=== PATIENT | male | born 1930 | race Caucasian/White ===

== ENCOUNTER 2016-06-11 13:21 | Inpatient (IN) | payer OTHER ==
[~2016-06-11] VITALS: Ht 170.2 cm; Wt 62.9 kg
[~2016-06-11 13:21] MED LIST: APRESOLINE25 MG PO; ASPIR 8181 M1 PO; BENAZEPRIL HCL40 MG PO; CARVEDILOL; CARVEDILOL12.5 MG PO; CEFTIN500 MG PO; CENTRUM MULTIV1 EACH PO; CEPHALEXIN500 MG PO; COREG12.5 MG PO; Centrum Silver,Certa PO; FINASTERIDE5 MG PO; Flomax PO; INSULIN SYRG MIS 1ML; KLOR-CON 1010 MEQ PO; LANTUS 10100 UNITS/ SC; LANTUS 3 M100 UNITS/ SC; LANTUS 3 M100 UNITS1 SC; LANTUS100 UNIT/1 SQ; LASIX40 MG PO; LOTENSIN40 MG PO; NOVOLOG 10100 UNITS/ SQ; NOVOLOG100 UNIT/2 SQ; OMEGA-31000 M1 PO; PRAVACHOL10 MG PO; PRAVACHOL20 MG PO; Proscar PO; RESTASIS 01 DROP/0.4 BOTH EYES; SPIRONOLACTONE25 MG; SPIRONOLACTONE25 MG PO; TOBRAMYCIN; TYLOX1 CAPSULE PO; [UNRECOGNIZED DRUG - OTHER] BOTH EYES
[2016-06-11 14:28] LABS: EOSINOPHIL (%) 0.9 % (0-5); EOSINOPHIL COUNT 0.1 K/uL (0-0.3); HEMATOCRIT 27.9 % (38.0-50.0); IMMATURE GRANULOCYTE (%) 0.5 % (0.0-0.7); LYMPHOCYTE COUNT 0.9 K/uL (1.0-2.8); MCH 31.2 PG (29.0-34.0); MCHC 34.4 G/DL (30.0-36.0); MCV 90.6 FL (86-99); MEAN PLAT.VOLUME 9.8 uM^3 (9.0-12.4); MONOCYTE (%) 10.1 % (3-12); MONOCYTE COUNT 0.7 K/uL (0-0.8); NEUTROPHIL (%) 74.9 % (45-76); PLATELET COUNT 257 K/uL (156-360); RBC DIS.WIDTH-CV 13.7 % (11.8-14.6); RBC DIS.WIDTH-SD 44.2 % (39-53); RED BLOOD COUNT 3.08 M/uL (4.00-5.50); WHITE BLOOD COUNT 6.6 K/uL (4.1-10.2)
[2016-06-11 14:38] LABS: CHLORIDE 93 mEq/L (99-109); POTASSIUM 3.5 mEq/L (3.7-5.4); SODIUM 131 mEq/L (136-147)
[2016-06-11 14:41] LABS: ANION GAP 12 MEQ/L (2-14)
[2016-06-11 14:43] LABS: GFR ESTIMATE (CALCULATED) 51 mL/min/
[2016-06-11 14:44] LABS: UREA NITROGEN (BUN) 16 mg/dL (9-23)
[2016-06-11 14:57] LABS: GLUCOSE 728 mg/dL (70-99)
[2016-06-11] MEDS ORDERED: TYLENOL REGULA325 MG PO (16:09)
[2016-06-11] MEDS ORDERED: CENTRUM SILVER1 EAC3 PO (16:10)
[2016-06-11 17:12] LABS: ALKALINE PHOSPHATASE 75 IU/L (3-129)
[2016-06-11 17:15] LABS: DIRECT BILIRUBIN 0.3 mg/dL (0.0-0.3)
[2016-06-11 17:50] LABS: Estimated Average Glucose 352 mg/dL (70-123); HEMOGLOBIN A1c (GLYCOHEMOGLOB) 13.9 % HGB (Below 5.7)
[2016-06-11 17:52] VITALS: BP 170/85
[2016-06-11 20:59] LABS: POINT-OF-CARE METER ID UU14174225
[2016-06-11 23:59] VITALS: BP 144/71
[2016-06-12 00:47] LABS: ADD MIUA? YES; BILIRUBIN NEGATIVE; BLOOD NEGATIVE; COLOR YELLOW ((YELLOW)); GLUCOSE (STRIP) >=500; KETONES NEGATIVE; LEUKOCYTES NEGATIVE; NITRITE NEGATIVE; PROTEIN (STRIP) 100; SPECIFIC GRAVITY 1.022 (1.000-1.030); UROBILINOGEN 0.2 MG/DL (0.2-1.0)
[2016-06-12 00:57] LABS: BACTERIA NONE SEEN /HPF; EPITHELIAL CELLS RARE /HPF; MUCUS TRACE /LPF; RED BLOOD CELLS 0-5 /HPF (0-5); UCUL ADDED? NO
[2016-06-12 07:26] LABS: ANION GAP 7 MEQ/L (2-14); CHLORIDE 103 MEQ/L (99-109); POTASSIUM 3.3 MEQ/L (3.7-5.4); SAMPLE HEMOLYSIS CHECK 0; SAMPLE ICTERIC CHECK 0; SAMPLE LIPEMIA CHECK 0; UREA NITROGEN (BUN) 17 mg/dL (9-23)
[2016-06-12 07:30] LABS: GFR ESTIMATE (CALCULATED) > 59 mL/min/; GLUCOSE 47 mg/dL (70-99); SODIUM 139 MEQ/L (136-147)
[2016-06-12 08:04] VITALS: BP 165/72
[2016-06-12 09:50] LABS: MCH 31.3 PG (29.0-34.0); MCHC 34.1 G/DL (30.0-36.0); MCV 91.8 FL (86-99); MEAN PLAT.VOLUME 10.7 uM^3 (9.0-12.4); RBC DIS.WIDTH-CV 14.5 % (11.8-14.6); RBC DIS.WIDTH-SD 47.6 % (39-53); RED BLOOD COUNT 2.94 M/uL (4.00-5.50)
[2016-06-12 09:54] LABS: PLATELET COUNT 345 K/uL (156-360); WHITE BLOOD COUNT 10.3 K/uL (4.1-10.2)
[2016-06-12 17:20] VITALS: BP 171/77
[2016-06-13 00:06] VITALS: BP 150/90
[2016-06-13 07:10] LABS: EOSINOPHIL (%) 1.5 % (0-5); EOSINOPHIL COUNT 0.1 K/uL (0-0.3); HEMATOCRIT 29.6 % (38.0-50.0); IMMATURE GRANULOCYTE (%) 0.4 % (0.0-0.7); INSTRUMENT ABS NEUTROPHIL CT 5.8 K/uL; LYMPHOCYTE COUNT 1.2 K/uL (1.0-2.8); MCH 31.3 PG (29.0-34.0); MCHC 33.8 G/DL (30.0-36.0); MCV 92.5 FL (86-99); MEAN PLAT.VOLUME 10.1 uM^3 (9.0-12.4); MONOCYTE (%) 9.1 % (3-12); MONOCYTE COUNT 0.7 K/uL (0-0.8); NEUTROPHIL (%) 73.8 % (45-76); NEUTROPHIL COUNT 5.8 K/uL (1.8-6.4); PLATELET COUNT 283 K/uL (156-360); RBC DIS.WIDTH-CV 14.5 % (11.8-14.6); WHITE BLOOD COUNT 7.8 K/uL (4.1-10.2)
[2016-06-13 07:37] LABS: ANION GAP 4 MEQ/L (2-14); CHLORIDE 102 MEQ/L (99-109); GFR ESTIMATE (CALCULATED) > 59 mL/min/; POTASSIUM 3.6 MEQ/L (3.7-5.4); SAMPLE HEMOLYSIS CHECK 0; SAMPLE ICTERIC CHECK 0; SAMPLE LIPEMIA CHECK 0; SODIUM 138 MEQ/L (136-147); UREA NITROGEN (BUN) 20 mg/dL (9-23)
[2016-06-13 07:43] LABS: GLUCOSE 93 mg/dL (70-99)
[2016-06-13 07:47] LABS: POINT-OF-CARE METER ID UU14174225
[2016-06-13 08:04] VITALS: BP 162/78
[2016-06-13] MEDS ORDERED: LEVEMIR100 UNIT/2 SC (09:02)
[2016-06-13] MEDS ORDERED: APRESOLINE25 MG PO (09:02)
[2016-06-13] MEDS ORDERED: NOVOLOG PE100 UNITS/ SC (09:02)
[2016-06-13] MEDS ORDERED: FINASTERIDE5 MG PO (09:02)
[2016-06-13] MEDS ORDERED: GLUCOPHAGE1000 MG PO (09:05)
[2016-06-13 11:38] LABS: POINT-OF-CARE METER ID UU14174225
[2016-06-14 17:54] LABS: POINT-OF-CARE METER ID UU13113702
== END 2016-06-13 12:20 | disposition home or self-care (01) | DRG 638 ==
LOC: EME 13:21 → EDOF 15:56 → 5SOUTH 17:40
PROVIDERS: Emergency Medicine; Internal Medicine; Nurse Practitioner Adult Health
DX: E11.65 Type 2 diabetes mellitus with hyperglycemia (principal); N17.9 Acute kidney failure, unspecified; E87.1 Hypo-osmolality and hyponatremia; Z91.128 Patient's intentional underdosing of medication regimen for other reason; I12.9 Hypertensive chronic kidney disease with stage 1 through stage 4 chronic kidney disease, or unspecified chronic kidney disease; N40.0 Benign prostatic hyperplasia without lower urinary tract symptoms; E11.40 Type 2 diabetes mellitus with diabetic neuropathy, unspecified; F03.90 Unspecified dementia, unspecified severity, without behavioral disturbance, psychotic disturbance, mood disturbance, and anxiety; M79.672 Pain in left foot; I73.9 Peripheral vascular disease, unspecified; I25.10 Atherosclerotic heart disease of native coronary artery without angina pectoris; N18.3 Chronic kidney disease, stage 3 (moderate); E11.22 Type 2 diabetes mellitus with diabetic chronic kidney disease; D64.9 Anemia, unspecified; E78.00 Pure hypercholesterolemia, unspecified; E78.5 Hyperlipidemia, unspecified; E87.6 Hypokalemia; Z79.4 Long term (current) use of insulin; Z91.81 History of falling; Z98.61 Coronary angioplasty status; Z82.49 Family history of ischemic heart disease and other diseases of the circulatory system; Z80.41 Family history of malignant neoplasm of ovary; Z83.3 Family history of diabetes mellitus
CPT/HCPCS: 70450; 73502; 80048; 80076; 81003; 82948; 83036; 85025; 85027; 93005; 93926; 93971; 99281; 99285; J1644; J1815; J7030; S0028

== ENCOUNTER 2016-09-19 16:21 | Observation (INO) | payer OTHER ==
[~2016-09-19] VITALS: Ht 167.6 cm; Wt 65.7 kg
[~2016-09-19 16:21] MED LIST changes: +CENTRUM SILVER1 EAC3 PO; +GLUCOPHAGE1000 MG PO; +LEVEMIR100 UNIT/2 SC; +NOVOLOG PE100 UNITS/ SC; +TYLENOL REGULA325 MG PO
[2016-09-19 16:48] LABS: POINT-OF-CARE METER ID UU13113747
[2016-09-19 17:35] LABS: POINT-OF-CARE METER ID UU13113747
[2016-09-19 18:09] LABS: EOSINOPHIL (%) 0.2 % (0-5); HEMATOCRIT 39.2 % (38.0-50.0); IMMATURE GRANULOCYTE (%) 0.8 % (0.0-0.7); IMMATURE GRANULOCYTE COUNT 0.1 K/uL; INSTRUMENT ABS NEUTROPHIL CT 9.2 K/uL; LYMPHOCYTE COUNT 0.7 K/uL (1.0-2.8); MCH 30.1 PG (29.0-34.0); MCHC 33.7 G/DL (30.0-36.0); MCV 89.3 FL (86-99); MEAN PLAT.VOLUME 10.2 uM^3 (9.0-12.4); MONOCYTE (%) 4.7 % (3-12); MONOCYTE COUNT 0.5 K/uL (0-0.8); NEUTROPHIL (%) 87.6 % (45-76); NEUTROPHIL COUNT 9.2 K/uL (1.8-6.4); PLATELET COUNT 172 K/uL (156-360); RBC DIS.WIDTH-CV 12.6 % (11.8-14.6); RBC DIS.WIDTH-SD 41.3 % (39-53); RED BLOOD COUNT 4.39 M/uL (4.00-5.50); WHITE BLOOD COUNT 10.5 K/uL (4.1-10.2)
[2016-09-19 18:20] LABS: CHLORIDE 103 mEq/L (99-109); POTASSIUM 3.2 mEq/L (3.7-5.4); SODIUM 143 mEq/L (136-147)
[2016-09-19 18:22] LABS: GLUCOSE 61 mg/dL (70-99)
[2016-09-19 18:23] LABS: ANION GAP 10 MEQ/L (2-14)
[2016-09-19 18:24] LABS: TOTAL BILIRUBIN 0.5 mg/dL (0.0-1.0)
[2016-09-19 18:25] LABS: ALKALINE PHOSPHATASE 73 IU/L (3-129)
[2016-09-19 18:26] LABS: GFR ESTIMATE (CALCULATED) > 59 mL/min/
[2016-09-19 18:27] LABS: UREA NITROGEN (BUN) 17 mg/dL (9-23)
[2016-09-19 18:32] LABS: ADD MIUA? YES; BILIRUBIN NEGATIVE; BLOOD NEGATIVE; COLOR STRAW ((YELLOW)); GLUCOSE (STRIP) NEGATIVE; KETONES NEGATIVE; LEUKOCYTES TRACE; NITRITE NEGATIVE; PROTEIN (STRIP) 100; SPECIFIC GRAVITY 1.005 (1.000-1.030); UROBILINOGEN 0.2 MG/DL (0.2-1.0)
[2016-09-19 18:39] LABS: POINT-OF-CARE METER ID UU13113747
[2016-09-19 18:39] LABS: BACTERIA NONE SEEN /HPF; EPITHELIAL CELLS RARE /HPF; MUCUS NONE SEEN /LPF; RED BLOOD CELLS 0-5 /HPF (0-5); UCUL ADDED? NO
[2016-09-19] MEDS ORDERED: POTASSIUM CHLO20 ME2 PO (21:05)
[2016-09-19] MEDS ORDERED: APRESOLINE25 MG PO (21:05)
[2016-09-19] MEDS ORDERED: LISINOPRIL5 MG PO (21:06)
[2016-09-19] MEDS ORDERED: LEVEMIR100 UNIT/2 SC (21:08)
[2016-09-19] MEDS ORDERED: PROSCAR5 MG PO (21:09)
[2016-09-19 23:46] LABS: POINT-OF-CARE METER ID UU13113747
[2016-09-20] VITALS (9 sets, daily range): BP systolic 125–200; BP diastolic 78–100
[2016-09-20 07:10] LABS: HEMATOCRIT 35.5 % (38.0-50.0); MCH 30.6 PG (29.0-34.0); MCHC 34.1 G/DL (30.0-36.0); MCV 89.6 FL (86-99); PLATELET COUNT 167 K/uL (156-360); RBC DIS.WIDTH-CV 12.9 % (11.8-14.6); RBC DIS.WIDTH-SD 41.9 % (39-53); RED BLOOD COUNT 3.96 M/uL (4.00-5.50); WHITE BLOOD COUNT 6.8 K/uL (4.1-10.2)
[2016-09-20 07:34] LABS: ALKALINE PHOSPHATASE 54 IU/L (3-129); ANION GAP 7 MEQ/L (2-14); CHLORIDE 104 MEQ/L (99-109); GFR ESTIMATE (CALCULATED) > 59 mL/min/; POTASSIUM 3.6 MEQ/L (3.7-5.4); SAMPLE HEMOLYSIS CHECK 0; SAMPLE ICTERIC CHECK 0; SAMPLE LIPEMIA CHECK 0; SODIUM 141 MEQ/L (136-147); TOTAL BILIRUBIN 0.4 MG/DL (0.0-1.0); UREA NITROGEN (BUN) 19 mg/dL (9-23)
[2016-09-20 07:37] LABS: GLUCOSE 214 mg/dL (70-99)
[2016-09-20 16:26] LABS: POINT-OF-CARE METER ID UU13113725
[2016-09-20 21:09] LABS: POINT-OF-CARE METER ID UU13113725
[2016-09-21] VITALS (8 sets, daily range): BP systolic 150–180; BP diastolic 74–101
[2016-09-21 05:30] LABS: POINT-OF-CARE METER ID UU13113725
[2016-09-21 06:12] LABS: HEMATOCRIT 39.6 % (38.0-50.0); MCH 30.2 PG (29.0-34.0); MCHC 34.1 G/DL (30.0-36.0); MCV 88.6 FL (86-99); MEAN PLAT.VOLUME 10.8 uM^3 (9.0-12.4); PLATELET COUNT 178 K/uL (156-360); RBC DIS.WIDTH-CV 12.8 % (11.8-14.6); RBC DIS.WIDTH-SD 41.9 % (39-53); RED BLOOD COUNT 4.47 M/uL (4.00-5.50); WHITE BLOOD COUNT 7.1 K/uL (4.1-10.2)
[2016-09-21 06:39] LABS: ALKALINE PHOSPHATASE 71 IU/L (3-129); ANION GAP 9 MEQ/L (2-14); CHLORIDE 104 MEQ/L (99-109); GFR ESTIMATE (CALCULATED) > 59 mL/min/; GLUCOSE 152 mg/dL (70-99); POTASSIUM 3.5 MEQ/L (3.7-5.4); SAMPLE HEMOLYSIS CHECK 0; SAMPLE ICTERIC CHECK 0; SAMPLE LIPEMIA CHECK 0; SODIUM 142 MEQ/L (136-147); TOTAL BILIRUBIN 0.6 MG/DL (0.0-1.0); UREA NITROGEN (BUN) 19 mg/dL (9-23)
[2016-09-21 11:42] LABS: POINT-OF-CARE METER ID UU13113725
[2016-09-21] MEDS ORDERED: APRESOLINE50 MG PO (15:42)
== END 2016-09-21 17:24 | disposition home or self-care (01) ==
LOC: EME 16:21 → 5EAST 21:53 → EDOF 21:53 → 5EAST 09-20 00:01
PROVIDERS: Emergency Medicine; Internal Medicine
DX: J32.9 Chronic sinusitis, unspecified (principal); E11.649 Type 2 diabetes mellitus with hypoglycemia without coma; Z79.84 Long term (current) use of oral hypoglycemic drugs; Z79.4 Long term (current) use of insulin; R00.1 Bradycardia, unspecified; T68.XXXA Hypothermia, initial encounter; R41.82 Altered mental status, unspecified; R11.10 Vomiting, unspecified; R26.2 Difficulty in walking, not elsewhere classified; E87.6 Hypokalemia; I10 Essential (primary) hypertension; E78.5 Hyperlipidemia, unspecified; W01.0XXA Fall on same level from slipping, tripping and stumbling without subsequent striking against object, initial encounter; Y93.89 Activity, other specified; Y92.009 Unspecified place in unspecified non-institutional (private) residence as the place of occurrence of the external cause; Z88.8 Allergy status to other drugs, medicaments and biological substances
CPT/HCPCS: 70450; 71010; 80053; 81003; 82948; 83605; 84439; 84443; 85025; 85027; 87040; 93005; 99281; 99285; G0378; G8987 GO CI; G8988 GO CH; J0360; J0692; J0696; J1650; J1815; J2405; J3480; J7050

== ENCOUNTER 2016-10-01 14:56 | Observation (INO) | payer OTHER ==
[~2016-10-01] VITALS: Ht 175.3 cm; Wt 61.8 kg
[~2016-10-01 14:56] MED LIST changes: +APRESOLINE50 MG PO; +LISINOPRIL5 MG PO; +POTASSIUM CHLO20 ME2 PO; +PROSCAR5 MG PO
[2016-10-01 15:16] LABS: POINT-OF-CARE METER ID UU14100415
[2016-10-01 16:04] LABS: EOSINOPHIL (%) 0.2 % (0-5); HEMATOCRIT 36.1 % (38.0-50.0); IMMATURE GRANULOCYTE (%) 0.4 % (0.0-0.7); INSTRUMENT ABS NEUTROPHIL CT 7.7 K/uL; LYMPHOCYTE COUNT 0.7 K/uL (1.0-2.8); MCH 30.4 PG (29.0-34.0); MCHC 34.1 G/DL (30.0-36.0); MCV 89.4 FL (86-99); MEAN PLAT.VOLUME 10.1 uM^3 (9.0-12.4); MONOCYTE (%) 5.6 % (3-12); MONOCYTE COUNT 0.5 K/uL (0-0.8); NEUTROPHIL (%) 85.6 % (45-76); NEUTROPHIL COUNT 7.7 K/uL (1.8-6.4); PLATELET COUNT 202 K/uL (156-360); RBC DIS.WIDTH-CV 13.1 % (11.8-14.6); RBC DIS.WIDTH-SD 42.5 % (39-53); RED BLOOD COUNT 4.04 M/uL (4.00-5.50); WHITE BLOOD COUNT 9.1 K/uL (4.1-10.2)
[2016-10-01 16:13] LABS: CHLORIDE 105 mEq/L (99-109); POTASSIUM 3.6 mEq/L (3.7-5.4); SODIUM 141 mEq/L (136-147)
[2016-10-01 16:15] LABS: GLUCOSE 225 mg/dL (70-99)
[2016-10-01 16:16] LABS: ANION GAP 11 MEQ/L (2-14)
[2016-10-01 16:17] LABS: TOTAL BILIRUBIN 0.4 mg/dL (0.0-1.0)
[2016-10-01 16:18] LABS: ALKALINE PHOSPHATASE 71 IU/L (3-129)
[2016-10-01 16:19] LABS: GFR ESTIMATE (CALCULATED) > 59 mL/min/
[2016-10-01 16:20] LABS: UREA NITROGEN (BUN) 15 mg/dL (9-23)
[2016-10-01 16:25] LABS: TROP-I INTERPRETATION NEGATIVE; TROPONIN-I 0.02 ng/mL (0.0-0.30)
[2016-10-01 16:37] LABS: POINT-OF-CARE METER ID UU13113747
[2016-10-01 19:14] LABS: ADD MIUA? YES; BILIRUBIN NEGATIVE; BLOOD NEGATIVE; COLOR YELLOW ((YELLOW)); GLUCOSE (STRIP) >=500; KETONES NEGATIVE; LEUKOCYTES NEGATIVE; NITRITE NEGATIVE; PROTEIN (STRIP) 100; SPECIFIC GRAVITY 1.007 (1.000-1.030); UROBILINOGEN 0.2 MG/DL (0.2-1.0)
[2016-10-01 19:18] LABS: BACTERIA NONE SEEN /HPF; EPITHELIAL CELLS NONE SEEN /HPF; MUCUS TRACE /LPF; RED BLOOD CELLS 0-5 /HPF (0-5); UCUL ADDED? NO; WHITE BLOOD CELLS 0-5 /HPF (0-5)
[2016-10-01 19:48] VITALS: BP 188/104
[2016-10-02] VITALS (7 sets, daily range): BP systolic 132–188; BP diastolic 69–79
[2016-10-02 07:59] LABS: POINT-OF-CARE METER ID UU13113700
[2016-10-02 11:44] LABS: POINT-OF-CARE METER ID UU13113700
[2016-10-02] MEDS ORDERED: POTASSIUM CHLO10 ME4 PO (11:56)
[2016-10-02] MEDS ORDERED: APRESOLINE50 MG PO (12:20)
[2016-10-02] MEDS ORDERED: KLOR-CON M2020 MEQ PO (12:20)
[2016-10-02] MEDS ORDERED: NOVOLOG PE100 UNITS/ SC (12:21)
[2016-10-02] MEDS ORDERED: LEVEMIR100 UNIT/2 SC (12:21)
[2016-10-02] MEDS ORDERED: LISINOPRIL5 MG PO (12:21)
[2016-10-02] MEDS ORDERED: GLUCOPHAGE1000 MG PO (12:22)
[2016-10-02] MEDS ORDERED: PROSCAR5 MG PO (12:22)
[2016-10-02 17:34] LABS: POINT-OF-CARE METER ID UU13113700
[2016-10-02] MEDS ORDERED: METFORMIN HCL1000 MG PO (18:26)
[2016-10-04 07:41] LABS: Estimated Average Glucose 169 mg/dL (70-123)
[2016-10-04 07:50] LABS: HEMOGLOBIN A1c (GLYCOHEMOGLOB) 7.5 % HGB (Below 5.7)
== END 2016-10-02 20:24 | disposition home or self-care (01) ==
LOC: EME 14:56 → EDOF 16:55 → 5WEST 19:36
PROVIDERS: Emergency Medicine; Family Medicine
DX: E11.649 Type 2 diabetes mellitus with hypoglycemia without coma (principal); I10 Essential (primary) hypertension; R41.82 Altered mental status, unspecified; N40.0 Benign prostatic hyperplasia without lower urinary tract symptoms; Z79.4 Long term (current) use of insulin
CPT/HCPCS: 71010; 80053; 81003; 82948; 83036; 84484; 85025; 87086; 93005; 99281; 99285; G0378; J0360